=== PATIENT | male | born 1970 | race Caucasian/White ===

== ENCOUNTER 2016-12-24 17:01 | Emergency (ER) | payer OTHER ==
[2016-12-24] MEDS ORDERED: LORazepam 2 MG/ML VIAL ONE (18:25)
[2016-12-24] MEDS ORDERED: fentaNYL CITRATE/PF 100 MCG/ 2ML AMP ONE (18:25)
[2016-12-24] MEDS ORDERED: LORazepam 2 MG/ML VIAL IVP ONE (18:28)
[2016-12-24] MEDS ORDERED: fentaNYL CITRATE/PF 100 MCG/ 2ML AMP IVP ONE (18:28)
[2016-12-24 19:56] LABS: eGFR (African) > 60; eGFR (Non-African) > 60
[2016-12-24 20:15] LABS: BASOPHILS % 0.4 (0.0-1.5); EOSINOPHILS % 1.3 % (0.0-6.8); MEAN CORPUSCULAR HEMOGLOBIN 31.8 pg (28.0-34.0); MEAN CORPUSCULAR VOLUME 92.8 fl (80.0-100.0); MONOCYTES % 5.7 % (0.0-11.0); NEUTROPHILS # 4.1 # k/uL (1.4-7.7)
[2016-12-24 20:48] VITALS: BP 138/90
--- NOTE | 2016-12-25 03:35 | Diagnostic Imaging Report ---
SHIMON CABRERA~ [facility] [address] [facility] [address] [address] ~ ~ ~ ~ Report Submission Date: December 24, 2016 8:20:46 PM CDT Patient ~ Study Name: YISEL SOTO ~ Date: December 24, 2016 7:51:22 PM CDT ~ Modality Type: CR Gender: M ~ Description: CHEST,ABDOMEN : 66 ~ Institution: [facility] Physician: SHIMON CABRERA ~ ~ ~ ~ Abdominal series with 1 view chest Date of Exam: December 24, 2016. History:~ PT STATES HX OF HERNIA FOR 4 YEARS, THIS WEEK HAS BEEN HAVING TROUBLE WITH PROTRUDING HERNIA IN LOWER RIGHT AND LOWER LEFT ABDOMINAL AREA GOING BACK IN, ABD PAIN (Hx) / ABD PAIN (DICOM Hx) / ABD PAIN (Pt comments) Findings: No comparison studies are provided. The cardiac and mediastinal silhouettes are normal. The lungs are clear. There is no evidence of free air under the diaphragm. There is gaseous distension of colon in the upper abdomen. The descending colon and rectosigmoid are partially filled with stool. A few gas filled segments of small bowel are present in the lower abdomen. The overall bowel gas pattern is nonspecific. Impression: Nonspecific abdominal bowel gas pattern with gaseous distension of colon and a few gas filled segments of small bowel. ~ Electronically signed on December 24, 2016 8:20:46 PM CDT by: Jolie CABRALES
--- NOTE | 2016-12-25 07:15 | ED Physician Documentation ---
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 he tried approx 45min-alf off. tried approx 1 hr no results Onset: minutes Timing: still present Severity: moderate ( appprox 3-4 inches diameter) Further Comments: yes (bowel sounds present) Last known Well Code/Unknown Code: Known - ROS CONST: no problems EYES/ENT: none CVS/RESP: none GI/: none MS/SKIN/LYMPH: none NEURO/PSYCH: denies: headache, fainting, dizziness, difficulty walking, anxiety , depression - PAST HX Past History: other (ing hernia 4+yrs - djd prev alcoholism htn) Allergies/Adverse Reactions: Allergies Allergy/AdvReac Type Severity Reaction Status Date / Time No Known Allergies Allergy Unverified 12/24/16 17:43 Home Medications: Ambulatory Orders Medication Instructions Recorded NK [NK] 12/24/16 - SOCIAL HX Smoking History: non-smoker (none x 2 - recovering alcoholic x 8 months) Drug Use: none - FAMILY HX Family History: No - VITAL SIGNS Vital Signs: Vital Signs Temp Pulse Resp BP Pulse Ox 98 F 72 18 171/98 99 12/24/16 17:05 12/24/16 17:05 12/24/16 17:05 12/24/16 17:05 12/24/16 17:05 - REVIEWED ASSESSMENTS Nursing Assessment Reviewed: Yes Vitals Reviewed: Yes Progress - Progress Progress: wed were able to reduce hernia after meds given. DR ACEVEDO ASST W/CARE AND DISMISSED PT. LLABS WERE OK PT REMAINED ASYMPTOMATIC AFTER REDUCTION/ PT CARE TNSF TO DR ACEVEDO APPROX 1930. - EKG/XRAY/CT Comments: called [facility] after failed reduction. surgeon there drequested try a General Adult Physical Exam - PHYSICAL EXAM GENERAL APPEARANCE: moderate distress EENT: eye inspection normal NECK: normal inspection, thyroid normal, supple RESPIRATORY: no resp distress, chest non-tender, breath sounds normal. No: wheezes, rales, rhonchi CVS: reg rate & rhythm, heart sounds normal ABDOMEN: soft, no distension, other (aforementioned rt ing hernia) SKIN: warm/dry, normal color. No: cyanosis, diaphoresis, jaundice EXTREMITIES: non-tender, normal range of motion, no evidence of injury NEURO: oriented X3, motor nml, sensation nml, mood/affect nml Discharge Clincal Impression: Hernia, inguinal Referrals: Joshua Nava III, MD [Primary Care Provider] - 2 Days Home Medications: Ambulatory Orders NK [NK] 12/24/16 Comments: HERNIA REDUCED AFTER MEDS AND ON 2ND ATTEMPT. CARE WAS TNSF TO DR ACEVEDO AT 1930 Condition: Good Disposition: 01 HOME, SELF-CARE Decision to Admit: NO Decision Time: 19:30
== END 2016-12-24 20:45 | disposition home or self-care (01) ==
LOC: ED 17:01
DX: K40.91 Unilateral inguinal hernia, without obstruction or gangrene, recurrent (principal)
CPT/HCPCS: 74022; 80053; 82150; 85025; J2060; J3010; 96374; 96375; 96376; 99283; 99284; S1016